=== PATIENT | female | born 1990 | race Caucasian/White ===

== ENCOUNTER 2018-03-24 01:51 | Emergency (ER) | payer SELFPAY ==
[2018-03-24] MEDS ORDERED: TYLENOL PO ONE (04:12)
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
[2018-03-24 08:55] VITALS: BP 111/61
--- NOTE | 2018-03-24 09:49 | XRay Report ---
THORACIC SPINE, 2 VIEWS: HISTORY: back pain. Normal bone mineralization. There is mild dextrocurvature throughout the thoracic and lumbar spine versus poor positioning of the patient. No evidence for compression deformity, malalignment, or bone lesion. The posterior ribs are intact. The paraspinal soft tissues are within normal limits. IMPRESSION: No acute injury is appreciated on x-ray.
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
== END 2018-03-24 08:55 | disposition home or self-care (01) ==
LOC: ED 01:51
DX: S00.81XA Abrasion of other part of head, initial encounter (principal); M54.6 Pain in thoracic spine; Y04.0XXA Assault by unarmed brawl or fight, initial encounter; Y93.89 Activity, other specified; Y92.89 Other specified places as the place of occurrence of the external cause; Y99.8 Other external cause status; Z90.49 Acquired absence of other specified parts of digestive tract
CPT/HCPCS: 36415; 70450; 70486; 72072; 84703